=== PATIENT | male | born 1960 | race Native Hawaiian/Other Pacific Islander ===

== ENCOUNTER 2020-04-22 20:46 | Emergency (ER) | payer OTHER ==
[~2020-04-22] VITALS: Ht 182.9 cm; Wt 68.5 kg
[2020-04-22 21:30] LABS: PLATELET COUNT 364 K/uL (142-355)
[2020-04-22 21:48] LABS: POTASSIUM 4.6 mmol/L (3.6-5.2)
[2020-04-23 00:45] VITALS: BP 142/82; TEMP 98.1
[2020-04-23] MEDS ORDERED: ABILIFY MYCITE10 MG PO (04:03)
[2020-04-23] MEDS ORDERED: AMLODIPINE BESYLATE PO (04:04)
[2020-04-23] MEDS ORDERED: LIPITOR80 MG PO (04:06)
[2020-04-23] MEDS ORDERED: BENZTROPINE2 MG PO (04:08)
[2020-04-23] MEDS ORDERED: ELIQUIS5 MG PO (04:09)
[2020-04-23] MEDS ORDERED: [UNRECOGNIZED DRUG - OTHER] PO (04:10)
[2020-04-23] MEDS ORDERED: GRALISE300 MG PO (04:12)
[2020-04-23] MEDS ORDERED: LEVIMIR (04:14)
[2020-04-23] MEDS ORDERED: INSU100P SC (04:16)
[2020-04-23] MEDS ORDERED: NOVOLOG FL100 UNIT/M SC (04:18)
[2020-04-23] MEDS ORDERED: PAROXETINE HYDR10 MG PO (04:20)
[2020-04-23] MEDS ORDERED: [UNRECOGNIZED DRUG - OTHER] PO (04:22)
[2020-04-23] MEDS ORDERED: RYBELSUS14 MG PO (04:23)
[2020-04-23] MEDS ORDERED: TRESIBA FL100 UNIT/M SC (04:25)
[2020-04-23] MEDS ORDERED: ONDA4TAB3 PO (04:26)
== END 2020-04-23 00:45 | disposition other institution (70) ==
LOC: ED 20:46
PROVIDERS: Emergency Medicine Emergency Medical Services
DX: R46.89 Other symptoms and signs involving appearance and behavior (principal); E11.65 Type 2 diabetes mellitus with hyperglycemia; Z11.59 Encounter for screening for other viral diseases; Z04.6 Encounter for general psychiatric examination, requested by authority
CPT/HCPCS: 80053; 81000; 82962; 85027; 87635; 93005; 96372; 99283; J1815; U0003

== ENCOUNTER 2020-05-01 08:21 | Inpatient (IN) | payer OTHER ==
[2020-05-01] VITALS (23 sets, daily range): BP systolic 94–136; BP diastolic 38–88; TEMP 97.7–98.8; Ht 177.8 cm; Wt 69.5 kg
[~2020-05-01] VITALS: Ht 177.8 cm; Wt 69.5 kg
[~2020-05-01 08:21] MED LIST: ABILIFY MYCITE10 MG PO; AMLODIPINE BESYLATE PO; BENZTROPINE2 MG PO; ELIQUIS5 MG PO; GRALISE300 MG PO; INSU100P SC; LEVIMIR; LIPITOR80 MG PO; NOVOLOG FL100 UNIT/M SC; ONDA4TAB3 PO; PAROXETINE HYDR10 MG PO; REGLAN PO; RYBELSUS14 MG PO; TRESIBA FL100 UNIT/M SC; [UNRECOGNIZED DRUG - OTHER] PO
[2020-05-01 08:53] LABS: PLATELET COUNT 343 K/uL (142-355)
[2020-05-01 09:09] LABS: PARTIAL THROMBOPLASTIN TIME 27.8 SECONDS (24.5-33.6)
[2020-05-01 09:24] LABS: SODIUM 137 mmol/L (136-145)
[2020-05-01] MEDS ORDERED: LORA2INJ21 IM (13:55)
[2020-05-01] MEDS ORDERED: DIVA250T2 PO (13:57)
[2020-05-01] MEDS ORDERED: DIVA500T2 PO (13:58)
[2020-05-01] MEDS ORDERED: VITAMIN D H1000 UNIT PO (14:02)
[2020-05-01] MEDS ORDERED: DIPH50IN INJ (14:04)
[2020-05-01] MEDS ORDERED: ESCITALOPRAM5 MG PO (14:05)
[2020-05-01] MEDS ORDERED: HALO5INJ3 IM (14:08)
[2020-05-01] MEDS ORDERED: PAXIL10 MG PO (14:13)
[2020-05-01] MEDS ORDERED: MAGNSUS68 PO (14:16)
[2020-05-01] MEDS ORDERED: TYLENOL325 MG PO (14:17)
[2020-05-02] VITALS (23 sets, daily range): BP systolic 107–147; BP diastolic 49–99; TEMP 97.6–98.8
[2020-05-02 06:11] LABS: PLATELET COUNT 287 K/uL (142-355)
[2020-05-02 07:12] LABS: POTASSIUM 4.3 mmol/L (3.6-5.2)
[2020-05-03] VITALS (22 sets, daily range): BP systolic 101–141; BP diastolic 35–80; TEMP 97.4–98.8
[2020-05-03 06:23] LABS: POTASSIUM 4.4 mmol/L (3.6-5.2)
[2020-05-03 06:42] LABS: PLATELET COUNT 299 K/uL (142-355)
[2020-05-04] VITALS (24 sets, daily range): BP systolic 96–140; BP diastolic 45–82; TEMP 97.8–98.4
[2020-05-04 06:19] LABS: POTASSIUM 4.2 mmol/L (3.6-5.2)
[2020-05-04 06:32] LABS: PLATELET COUNT 334 K/uL (142-355)
[2020-05-05] VITALS (23 sets, daily range): BP systolic 95–141; BP diastolic 44–90; TEMP 98.4–98.9
[2020-05-05 06:26] LABS: PLATELET COUNT 336 K/uL (142-355)
[2020-05-05 06:56] LABS: POTASSIUM 3.1 mmol/L (3.6-5.2)
[2020-05-06] VITALS (13 sets, daily range): BP systolic 125–142; BP diastolic 54–87; TEMP 97.6–98.9
[2020-05-06 05:00] LABS: PLATELET COUNT 337 K/uL (142-355)
[2020-05-06 05:20] LABS: POTASSIUM 3.5 mmol/L (3.6-5.2)
[2020-05-07] VITALS (13 sets, daily range): BP systolic 99–149; BP diastolic 41–70; TEMP 97.6–98.9
[2020-05-07 05:42] LABS: PLATELET COUNT 299 K/uL (142-355)
[2020-05-07 05:54] LABS: POTASSIUM 3.1 mmol/L (3.6-5.2)
[2020-05-08] VITALS: BP 131/69; TEMP 98.1
[2020-05-08 02:00] VITALS: BP 140/68; TEMP 97.8
[2020-05-08 04:00] VITALS: BP 128/66; TEMP 98.2
[2020-05-08 06:00] VITALS: BP 136/58; TEMP 98
[2020-05-08 06:05] LABS: PLATELET COUNT 380 K/uL (142-355)
[2020-05-08 08:00] VITALS: BP 122/64; TEMP 97.9
[2020-05-08 10:00] VITALS: BP 133/98
[2020-05-08] MEDS ORDERED: INSU300I SC (13:26)
[2020-05-08] MEDS ORDERED: PROTEINE1 PO (13:28)
[2020-05-08] MEDS ORDERED: ZINC-220220 MG PO (13:29)
[2020-05-08] MEDS ORDERED: DAILY MULTI PO (13:30)
[2020-05-08] MEDS ORDERED: ASCORBIC ACD500 MG PO (13:31)
[2020-05-08] MEDS ORDERED: PANTOPRAZOLE 40MG TA PO (13:32)
[2020-05-08] MEDS ORDERED: SILVADENE1 % EX (13:33)
[2020-05-08] MEDS ORDERED: ANTI-DIARRHE2 MG PO (13:34)
== END 2020-05-08 13:13 | disposition other institution (70) | DRG 871 ==
LOC: ED 08:21 → ICU 10:15 → PCU 05-06 10:30
PROVIDERS: ADMIT Hospitalist; ATTEND Internal Medicine Endocrinology, Diabetes & Metabolism
DX: A41.89 Other specified sepsis (principal); J15.0 Pneumonia due to Klebsiella pneumoniae; F84.0 Autistic disorder; N17.9 Acute kidney failure, unspecified; K21.9 Gastro-esophageal reflux disease without esophagitis; E78.49 Other hyperlipidemia; G89.29 Other chronic pain; E11.42 Type 2 diabetes mellitus with diabetic polyneuropathy; R74.02 Elevation of levels of lactic acid dehydrogenase [LDH]; E11.65 Type 2 diabetes mellitus with hyperglycemia; E87.6 Hypokalemia; L89.151 Pressure ulcer of sacral region, stage 1; L89.322 Pressure ulcer of left buttock, stage 2; L89.312 Pressure ulcer of right buttock, stage 2
CPT/HCPCS: 36415; 36416; 36600; 51702; 80053; 80200; 80202; 81000; 82550; 82553; 82805; 83605; 83880; 84484; 85007; 85027; 85379; 85610; 85730; 87040; 87070; 87077; 87186; 87205; 93005; 94640; 94664; 94760; 96365; 99285; J0515; J1630; J1650; J1815; J1940; J2060; J2405; J2543; J3260; J3370; J3480